=== PATIENT | male | born 1975 | race Caucasian/White ===

== ENCOUNTER 2019-12-23 10:20 | Inpatient (IN) ==
[2019-12-23] MEDS ORDERED: AZITHROMYCIN INJ 500 MG in SODIUM CHLORIDE 0.9% 250 ML IV STA (10:40)
[2019-12-23 12:49] LABS: Ferritin 739.9 ng/ml (26-388)
[2019-12-23 12:53] LABS: Basophils # 0.1 10*3/uL (0.0-0.2); Basophils % 0.4 % (0.0-0.8); Eosinophils # 0.1 10*3/uL (0.0-0.87); Eosinophils % 0.4 % (0.00-10.9); Hematocrit 39.8 VOL% (42.0-52.0); Hemoglobin 13.6 GM/DL (14.0-18.0); Immature Granulocytes % 1.6 %; Immature Granulocytes Absolute 0.31 #; Lymphocytes # 2.1 10*3/uL (1.4-4.0); Lymphocytes % 10.6 % (21.2-54.2); Mean Corpuscular HGB Conc 34.2 GM/DL (32-36); Mean Corpuscular Volume 85.6 FL (87-102); Mean Platelet Volume 10.1 FL (9.6-12.0); Monocytes % 7.8 % (1.7-12.7); NRBC # 0.02 10*3/uL; Neutrophils % 79.2 % (38.7-73.9); Platelet Count 483 T/CUMM (130-400); Red Blood Count 4.65 MC/CUMM (3.8-5.5); Red Cell Distribution Width 14.2 % (9.3-17.3); White Blood Count 19.6 T/CUMM (4-12)
[2019-12-23 12:58] LABS: Band Neutrophils 2 % (0-10); Lymphocytes 11 % (20-55); Segmented Neutrophils 78 % (50-85); Total Cells Counted 100
[2019-12-23 12:59] LABS: Platelet Estimate Increased; Polychromasia 1+
[2019-12-23 13:00] LABS: Anisocytosis Slight; Microcytosis Slight; Reactive Lymphocytes 1+
[2019-12-23 13:02] LABS: Albumin 2.5 G/DL (3.4-5.0); Bilirubin,Total 0.9 MG/DL (0.2-1.0); Calcium 8.9 MG/DL (8.5-10.1); Osmolality,Calculated 253.2 MOS/KG (273-304); Total Protein 7.8 G/DL (6.4-8.3)
[2019-12-23] MEDS ORDERED: PIPERACILLIN/TAZOBACTAM 3,375 MG in SODIUM CHLORIDE 0.9% 100 ML IV STA (13:25)
[2019-12-23 15:03] LABS: Apearance,Urine CLEAR (Clear); Bilirubin,Urine Negative (Negative); Blood, Urine Negative (Negative); Glucose,Urine (UA) Negative (Negative); Ketones,Urine Negative (Negative); Nitrite,Urine Negative (Negative); Protein,Urine Negative; RBC,Urine 1 /HPF (0-4); Urine Color Yellow (Yellow); Urine Specific Gravity 1.033 (1.001-1.035); WBC,Urine 1 /HPF (0-6)
[2019-12-23] MEDS ORDERED: DOCUSATE SODIUM 100 MG CAPSULE PO PRN (15:11)
[2019-12-23] MEDS ORDERED: guaiFENesin/DM ER 600-30 MG TABLET PO PRN (15:11)
[2019-12-23] MEDS ORDERED: ONDANSETRON 4 MG/2 ML VIAL IV PRN (15:11)
[2019-12-23] MEDS ORDERED: NITROGLYCERIN SL 0.4 MG TABLET SL PRN (16:51)
[2019-12-23] MEDS ORDERED: TUBERCULIN SKIN TEST 0.1 ML SYRINGE INTRADERM ONE (17:59)
[2019-12-23] MEDS: SODIUM CHLORIDE 0.9% 1,000 ML IV SCH (18:56)
[2019-12-23 19:49] LABS: Barbiturates Screen,Urine Negative (Negative); Benzodiazepines Screen,Urine Positive (Negative); Cannabinoid Screen,Urine Positive (Negative); Opiate Screen,Urine Negative (Negative); Phencyclidine Screen,Urine Negative (Negative)
[2019-12-23] MEDS: cefTRIAXone 1,000 MG in SYRINGE 1 EACH IV SCH (22:18)
[2019-12-23] MEDS: CLOPIDOGREL 75 MG TABLET PO SCH (22:35)
[2019-12-23] MEDS: MULTIVITAMIN (CENTRUM) TABLET PO SCH (22:35)
[2019-12-23] MEDS: ASPIRIN EC 81 MG TABLET PO SCH (22:35)
[2019-12-23] MEDS: ATORVASTATIN 40 MG TABLET PO SCH (22:35)
[2019-12-23] MEDS: POTASSIUM CHLORIDE 20 MEQ TABLET PO SCH (22:36)
[2019-12-23] MEDS: POLYETHYLENE GLYCOL POWDER 17 GM PACK PO SCH (22:36)
[2019-12-23] MEDS: METOPROLOL SUCCINATE XL 25 MG TABLET PO SCH (22:37)
[2019-12-23] MEDS: CHOLECALCIFEROL 5,000 UNIT TABLET PO SCH (22:37)
[2019-12-23] MEDS: BENZONATATE 100 MG CAPSULE PO SCH (22:37)
[2019-12-24] MEDS: SODIUM CHLORIDE 0.9% 1,000 ML IV SCH ×5 (00:37→20:31)
[2019-12-24 06:29] LABS: Basophils # 0.1 10*3/uL (0.0-0.2); Basophils % 0.4 % (0.0-0.8); Eosinophils # 0.1 10*3/uL (0.0-0.87); Eosinophils % 0.5 % (0.00-10.9); Immature Granulocytes % 1.3 %; Immature Granulocytes Absolute 0.24 #; Lymphocytes # 2.7 10*3/uL (1.4-4.0); Lymphocytes % 14.4 % (21.2-54.2); Mean Corpuscular HGB Conc 33.5 GM/DL (32-36); Mean Corpuscular Volume 90.9 FL (87-102); Mean Platelet Volume 10.2 FL (9.6-12.0); Monocytes % 8.1 % (1.7-12.7); Neutrophils % 75.3 % (38.7-73.9); Platelet Count 495 T/CUMM (130-400); Red Blood Count 3.94 MC/CUMM (3.8-5.5); Red Cell Distribution Width 14.6 % (9.3-17.3); White Blood Count 18.4 T/CUMM (4-12)
[2019-12-24 06:39] LABS: Hematocrit 35.8 VOL% (42.0-52.0)
[2019-12-24 06:42] LABS: Albumin 2.2 G/DL (3.4-5.0); Bilirubin,Total 1.3 MG/DL (0.2-1.0); Calcium 8.4 MG/DL (8.5-10.1); Osmolality,Calculated 261.7 MOS/KG (273-304); Risk Ratio 6.61; Thyroid Stimulating Hormone 0.267 uIU/ml (0.358-3.74); Total Protein 6.9 G/DL (6.4-8.3); VLDL CHOLESTEROL 37.6 MG/DL
[2019-12-24 06:47] LABS: Platelet Estimate Normal; Polychromasia Few
[2019-12-24] MEDS: POTASSIUM CHLORIDE 20 MEQ TABLET PO SCH ×2 (08:40→16:40)
[2019-12-24] MEDS: AZITHROMYCIN 250 MG TABLET PO SCH (08:40)
[2019-12-24] MEDS: BENZONATATE 100 MG CAPSULE PO SCH ×3 (08:40→20:32)
[2019-12-24] MEDS: POLYETHYLENE GLYCOL POWDER 17 GM PACK PO SCH (09:03)
[2019-12-24] MEDS: ACETAMINOPHEN 325 MG TABLET PO PRN ×2 (16:40→23:20)
[2019-12-24] MEDS: cefTRIAXone 1,000 MG in SYRINGE 1 EACH IV SCH (20:35)
[2019-12-25] MEDS: SODIUM CHLORIDE 0.9% 1,000 ML IV SCH ×5 (00:04→20:31)
[2019-12-25 06:22] LABS: Calcium 7.9 MG/DL (8.5-10.1); Osmolality,Calculated 274.5 MOS/KG (273-304)
[2019-12-25 06:56] LABS: Basophils # 0.1 10*3/uL (0.0-0.2); Basophils % 0.5 % (0.0-0.8); Eosinophils # 0.3 10*3/uL (0.0-0.87); Eosinophils % 1.9 % (0.00-10.9); Hematocrit 30.1 VOL% (42.0-52.0); Hemoglobin 10.5 GM/DL (14.0-18.0); Immature Granulocytes % 1.5 %; Immature Granulocytes Absolute 0.23 #; Lymphocytes # 2.7 10*3/uL (1.4-4.0); Lymphocytes % 17.2 % (21.2-54.2); Mean Corpuscular HGB Conc 34.9 GM/DL (32-36); Mean Platelet Volume 10.3 FL (9.6-12.0); Monocytes % 6.1 % (1.7-12.7); NRBC # 0.02 10*3/uL; Neutrophils % 72.8 % (38.7-73.9); Platelet Count 499 T/CUMM (130-400); Red Blood Count 3.17 MC/CUMM (3.8-5.5); Red Cell Distribution Width 15.9 % (9.3-17.3); White Blood Count 15.4 T/CUMM (4-12)
[2019-12-25 07:07] LABS: Macrocytosis Slight; Polychromasia Slight
[2019-12-25 07:08] LABS: Platelet Estimate Increased
[2019-12-25] MEDS: POLYETHYLENE GLYCOL POWDER 17 GM PACK PO SCH (08:02)
[2019-12-25] MEDS: AZITHROMYCIN 250 MG TABLET PO SCH (08:40)
[2019-12-25] MEDS: BENZONATATE 100 MG CAPSULE PO SCH ×3 (08:40→20:36)
[2019-12-25] MEDS: ACETAMINOPHEN 325 MG TABLET PO PRN (16:22)
[2019-12-25] MEDS: cefTRIAXone 1,000 MG in SYRINGE 1 EACH IV SCH (20:32)
[2019-12-26] MEDS: SODIUM CHLORIDE 0.9% 1,000 ML IV SCH ×2 (09:14→17:32)
[2019-12-26] MEDS: BENZONATATE 100 MG CAPSULE PO SCH ×3 (09:15→20:49)
[2019-12-26] MEDS: POLYETHYLENE GLYCOL POWDER 17 GM PACK PO SCH (09:15)
[2019-12-26] MEDS: AZITHROMYCIN 250 MG TABLET PO SCH (09:15)
[2019-12-26 10:49] LABS: Albumin 2.6 G/DL (3.4-5.0); Calcium 8.9 MG/DL (8.5-10.1); Osmolality,Calculated 270.8 MOS/KG (273-304); Total Protein 7.6 G/DL (6.4-8.3)
[2019-12-26 11:05] LABS: Basophils # 0.1 10*3/uL (0.0-0.2); Basophils % 0.6 % (0.0-0.8); Eosinophils # 0.2 10*3/uL (0.0-0.87); Eosinophils % 1.4 % (0.00-10.9); Hematocrit 36.3 VOL% (42.0-52.0); Immature Granulocytes % 1.2 %; Lymphocytes # 2.9 10*3/uL (1.4-4.0); Lymphocytes % 17.5 % (21.2-54.2); Mean Corpuscular HGB Conc 33.3 GM/DL (32-36); Mean Corpuscular Volume 92.4 FL (87-102); Monocytes % 5.5 % (1.7-12.7); NRBC # 0.03 10*3/uL; Neutrophils % 73.8 % (38.7-73.9); White Blood Count 16.4 T/CUMM (4-12)
[2019-12-26 11:10] LABS: Hemoglobin 12.1 GM/DL (14.0-18.0); Platelet Count 662 T/CUMM (130-400); Red Blood Count 3.93 MC/CUMM (3.8-5.5)
[2019-12-26 11:36] LABS: Anisocytosis 1+; Band Neutrophils 1 % (0-10); Eosinophils 1 % (0-10); Hypochromasia 1+; Lymphocytes 12 % (20-55); Metamyelocytes 1 %; Segmented Neutrophils 78 % (50-85); Total Cells Counted 100
[2019-12-26 11:37] LABS: Platelet Estimate Increased; Polychromasia Slight
[2019-12-26] MEDS: ACETAMINOPHEN 325 MG TABLET PO PRN (18:00)
[2019-12-26] MEDS: CLOPIDOGREL 75 MG TABLET PO SCH (19:05)
[2019-12-26] MEDS: ASPIRIN EC 81 MG TABLET PO SCH (19:05)
[2019-12-26] MEDS: METOPROLOL SUCCINATE XL 25 MG TABLET PO SCH (20:49)
[2019-12-26] MEDS: ATORVASTATIN 40 MG TABLET PO SCH (20:49)
[2019-12-26] MEDS: MULTIVITAMIN (CENTRUM) TABLET PO SCH (20:49)
[2019-12-26] MEDS: CHOLECALCIFEROL 5,000 UNIT TABLET PO SCH (20:49)
[2019-12-26] MEDS: cefTRIAXone 1,000 MG in SYRINGE 1 EACH IV SCH (22:53)
[2019-12-27 08:22] LABS: Calcium 9.1 MG/DL (8.5-10.1); Osmolality,Calculated 268.1 MOS/KG (273-304)
[2019-12-27 08:32] LABS: Basophils # 0.1 10*3/uL (0.0-0.2); Basophils % 0.6 % (0.0-0.8); Eosinophils # 0.2 10*3/uL (0.0-0.87); Eosinophils % 1.5 % (0.00-10.9); Hematocrit 36.4 VOL% (42.0-52.0); Hemoglobin 11.8 GM/DL (14.0-18.0); Immature Granulocytes % 1.7 %; Immature Granulocytes Absolute 0.26 #; Lymphocytes # 2.8 10*3/uL (1.4-4.0); Lymphocytes % 18.1 % (21.2-54.2); Mean Corpuscular HGB Conc 32.4 GM/DL (32-36); Mean Corpuscular Volume 92.4 FL (87-102); Mean Platelet Volume 9.8 FL (9.6-12.0); Monocytes % 6.4 % (1.7-12.7); NRBC # 0.02 10*3/uL; Neutrophils % 71.7 % (38.7-73.9); Platelet Count 687 T/CUMM (130-400); Red Blood Count 3.94 MC/CUMM (3.8-5.5); Red Cell Distribution Width 16.6 % (9.3-17.3); White Blood Count 15.5 T/CUMM (4-12)
[2019-12-27 08:36] LABS: Band Neutrophils 3 % (0-10); Eosinophils 1 % (0-10); Lymphocytes 16 % (20-55); Nucleated Red Blood Cells 1 (0-5); Platelet Estimate Increased; Segmented Neutrophils 70 % (50-85); Total Cells Counted 100
[2019-12-27 08:37] LABS: Anisocytosis 1+; Macrocytosis Slight; Polychromasia 1+
[2019-12-27] MEDS: AZITHROMYCIN 250 MG TABLET PO SCH (09:16)
[2019-12-27] MEDS: BENZONATATE 100 MG CAPSULE PO SCH ×2 (09:16→15:36)
[2019-12-27] MEDS: POLYETHYLENE GLYCOL POWDER 17 GM PACK PO SCH (09:17)
[2019-12-27 12:35] LABS: M. Tuberculosis PCR Result Negative (Negative); M. Tuberculosis PCR Source SPUTUM
[2019-12-27 12:37] LABS: Histo/Blasto PCR Result Negative; Histo/Blasto Source SPUTUM
[2019-12-27 12:38] VITALS: BP 134/76
== END 2019-12-27 15:43 | disposition home or self-care (01) | DRG 871 ==
LOC: N.ED 10:20 → SUATTDRO 14:59 → N.EDINP 14:59 → N.2W 20:44 → N.3E 12-26 17:21
PROVIDERS: ADMIT Family Medicine; ATTEND Internal Medicine

== ENCOUNTER 2021-12-12 08:12 | Observation (INO) ==
[2021-12-12] MEDS ORDERED: ENOXAPARIN 100 MG/ML SYRINGE SUBCUT STA (08:27)
[2021-12-12] MEDS ORDERED: NITROGLYCERIN 2% OINT 1 INCH/GM PACK TOP STA (08:27)
[2021-12-12] MEDS ORDERED: MORPHINE 2 MG/1 ML SYRINGE IV STA (08:27)
[2021-12-12] MEDS ORDERED: ASPIRIN 325 MG TABLET PO STA (08:27)
[2021-12-12] MEDS ORDERED: ONDANSETRON 4 MG/2 ML VIAL IV STA (08:27)
[2021-12-12 08:39] LABS: Basophils % 0.4 % (0.0-0.8); Eosinophils # 0.2 10*3/uL (0.0-0.87); Eosinophils % 2.1 % (0.00-10.9); Hematocrit 49.1 VOL% (42.0-52.0); Hemoglobin 16.5 GM/DL (14.0-18.0); Immature Granulocytes % 0.4 %; Immature Granulocytes Absolute 0.03 #; Lymphocytes # 2.1 10*3/uL (1.4-4.0); Lymphocytes % 25.6 % (21.2-54.2); Mean Corpuscular HGB Conc 33.6 GM/DL (32-36); Mean Corpuscular Volume 91.3 FL (87-102); Mean Platelet Volume 10.7 FL (9.6-12.0); Neutrophils % 60.5 % (38.7-73.9); Platelet Count 214 T/CUMM (130-400); Red Blood Count 5.38 MC/CUMM (3.8-5.5); Red Cell Distribution Width 13.9 % (9.3-17.3)
[2021-12-12 08:58] LABS: INR 1.1; PT Patient Result 11.9 SECS (10.5-12.0); Partial Thromboplastin Time 35.6 SECS (23.8-32.1)
[2021-12-12 09:07] LABS: Bilirubin,Total 0.4 MG/DL (0.20-1.00); Calcium 9.3 MG/DL (8.5-10.1); Osmolality,Calculated 278.4 MOS/KG (273-304); Potassium 4.1 MMOL/L (3.5-5.1); Total Protein 7.2 G/DL (6.4-8.2)
[2021-12-12 09:45] LABS: Barbiturates Screen,Urine Negative (Negative); Benzodiazepines Screen,Urine Negative (Negative); Cannabinoid Screen,Urine Negative (Negative); Opiate Screen,Urine Positive (Negative); Phencyclidine Screen,Urine Negative (Negative)
[2021-12-12] MEDS ORDERED: diphenhydrAMINE CAP 25 MG CAPSULE PO PRN (10:42)
[2021-12-12] MEDS ORDERED: MAGNESIUM SULF RIDER 4 GM/100 ML PREMIX IV PRN (10:42)
[2021-12-12] MEDS ORDERED: MAGNESIUM SULF RIDER 2 GM/50 ML PREMIX IV PRN (10:42)
[2021-12-12] MEDS ORDERED: POTASSIUM CHLORIDE RIDER 10 MEQ/100 ML PREMIX IV PRN (10:44)
[2021-12-12] MEDS: SODIUM CHLORIDE 0.9% 1,000 ML IV SCH (11:01)
[2021-12-12] MEDS ORDERED: ALPRAZolam 0.5 MG TABLET PO PRN (11:16)
[2021-12-12] MEDS ORDERED: DIAZEPAM 5 MG TABLET PO ONE (12:00)
[2021-12-12] MEDS ORDERED: HYDROmorphone 1 MG/1 ML SYRINGE ONE ×2 (13:48→14:16)
[2021-12-12] MEDS ORDERED: MIDAZOLAM 2 MG/2 ML VIAL ONE ×2 (13:49→14:08)
[2021-12-12] MEDS ORDERED: NITROGLYCERIN DRIP 50 MG/250 ML BOTTLE IV ONE (13:53)
[2021-12-12] MEDS ORDERED: VERAPAMIL 5 MG/2 ML VIAL ONE (13:53)
[2021-12-12] MEDS ORDERED: LIDOCAINE 1% 20 ML VIAL ONE (13:59)
[2021-12-12] MEDS ORDERED: OMEGA 3 ACID ETHYL ESTERS 1 GM CAPSULE PO SCH (19:00)
[2021-12-12] MEDS ORDERED: METOPROLOL SUCCINATE XL 25 MG TABLET PO SCH (21:00)
[2021-12-12] MEDS ORDERED: ATORVASTATIN 40 MG TABLET PO SCH (21:00)
[2021-12-12] MEDS ORDERED: ASPIRIN EC 81 MG TABLET PO SCH (21:00)
[2021-12-13 05:15] LABS: Basophils % 0.4 % (0.0-0.8); Eosinophils # 0.2 10*3/uL (0.0-0.87); Eosinophils % 1.9 % (0.00-10.9); Hematocrit 46.7 VOL% (42.0-52.0); Hemoglobin 15.1 GM/DL (14.0-18.0); Immature Granulocytes % 0.5 %; Immature Granulocytes Absolute 0.05 #; Lymphocytes # 2.7 10*3/uL (1.4-4.0); Lymphocytes % 24.4 % (21.2-54.2); Mean Corpuscular HGB Conc 32.3 GM/DL (32-36); Mean Corpuscular Volume 94.3 FL (87-102); Mean Platelet Volume 10.9 FL (9.6-12.0); Monocytes % 9.4 % (1.7-12.7); Neutrophils % 63.4 % (38.7-73.9); Platelet Count 177 T/CUMM (130-400); Red Blood Count 4.95 MC/CUMM (3.8-5.5); Red Cell Distribution Width 13.7 % (9.3-17.3); White Blood Count 10.9 T/CUMM (4-12)
[2021-12-13 05:36] LABS: Albumin 3.4 G/DL (3.4-5.0); Bilirubin,Total 0.5 MG/DL (0.20-1.00); Osmolality,Calculated 272.8 MOS/KG (273-304); Potassium 4.2 MMOL/L (3.5-5.1); Total Protein 6.6 G/DL (6.4-8.2)
[2021-12-13] MEDS: SODIUM CHLORIDE 0.9% 1,000 ML IV SCH ×2 (07:35→07:36)
[2021-12-13 08:28] VITALS: BP 123/82
[2021-12-13] MEDS ORDERED: PANTOPRAZOLE 40 MG TABLET PO SCH (09:00)
== END 2021-12-13 10:10 | disposition home or self-care (01) ==
LOC: N.ED 08:12 → N.EDINP 08:12 → N.TELEN 11:34
PROVIDERS: ADMIT Internal Medicine Cardiovascular Disease; ATTEND Internal Medicine Cardiovascular Disease
PROC: CLCCHCL (ICD-10-PCS; 2021-12-12 12:00)